=== PATIENT | female | born 2000 | race Caucasian/White ===

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

== ENCOUNTER 2019-01-22 23:08 | Emergency (ER) | payer OTHER ==
[~2019-01-22] VITALS: Ht 182.9 cm; Wt 93.0 kg
[~2019-01-22 23:08] MED LIST changes: +SUCR1TAB35 PO
--- NOTE | 2019-01-22 23:28 | ED.ADGEN ---
Past History Past Medical History: Migraines, Ovarian Cyst, UTI, Other Past Surgical History: Other Smoking: Cigarettes Alcohol Use: None Drug Use: None Adult General Chief Complaint Chief Complaint ".. 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 and been working too much over time... I been hot ...sweaty.. .. sore throat.. and now head ache ... and nausea.. I am also worried I am ..." [facility] HPI Patient is a 18 year old female who presents with above hx and abdomen pain, malaise, subjective fevers, subjective chills, arthralgia, myalgia, cephalalgia. Patient does work in in home health. No recent travel. No specific ill contacts. Patient normally healthy. Patient did not get flu vaccination this season. No history of trauma. Patient is normally healthy. Patient is concerned she might be and feels that home test are not accurate. Patient is anxious. Patient does smoke. Patient denies any history immunosuppression. Patient denies any history of drug use. . Patient denies any history of colitis or renal stones with her family members. Patient denies any history of ovarian cysts. Review of Systems Review of Systems Constitutional: Subjective complaints of fever or chills [] Eyes: Denies change in visual acuity, redness, or eye pain [] HENT: History of nasal congestion and sore throat [] Respiratory: Denies cough or shortness of breath [] Cardiovascular: No additional information not addressed in [facility] [] GI: History of abdominal discomfort, nausea, . Denies vomiting, bloody stools or diarrhea [] : Denies dysuria or hematuria [] Musculoskeletal: Patient]complaints of generalized myalgia and arthralgia. Fatigue Integument: Denies rash or skin lesions [] Neurologic: Complaints of cephalgia. Denies, focal weakness or sensory changes [ ] Endocrine: Denies polyuria or polydipsia [] All other systems were reviewed and found to be within normal limits, except as documented in this note. Family History Family History Noncontributory Current Medications Current Medications Current Medications Medications (Trade) Dose Ordered Sig/Behzad Start Time Stop Time Status Last Admin Dose Admin Acetaminophen (Tylenol) 1,000 mg 1X ONCE 01/23/19 00:45 01/23/19 00:46 DC 3/12/19 01:21 1,000 MG Lactated Ringer's 1,000 ml @ 1,000 mls/hr Q1H 01/23/19 00:45 01/23/19 01:44 DC 01/23/19 01:45 1,000 MLS/HR Ondansetron HCl (Zofran Odt) 8 mg 1X ONCE 01/23/19 00:45 01/23/19 00:46 DC 01/23/19 01:20 8 MG Allergies Allergies Allergies Coded Allergies Type Severity Reaction Last Updated Verified Sulfa (Sulfonamide Antibiotics) Allergy Intermediate 12/28/17 Yes sulfamethoxazole Allergy Intermediate 12/28/17 Yes trimethoprim Allergy Intermediate 12/28/17 Yes hydrocodone Allergy Unknown 01/26/17 Yes Physical Exam Physical Exam Constitutional: Well developed, well nourished, mild to moderate distress, non- toxic appearance. [] HENT: Normocephalic, atraumatic, bilateral external ears normal, oropharynx moist, postnasal drainage and mild erythema, no oral exudates, nose swollen turbinates and rhinorrhea that is clear Eyes: PERRLA, EOMI, conjunctiva normal, no discharge. [] Neck: Normal range of motion, no tenderness, supple, no stridor. [] Cardiovascular:Heart rate regular rhythm, no murmur [] Lungs & Thorax: Bilateral breath sounds with apex. A few scattered wheezes auscultation [] Abdomen: Bowel sounds normal, soft, mild generalized tenderness, no masses, no pulsatile masses. Tympanic and mild gaseous distention. No true rebound. Declines rectal vaginal exam this time Skin: Warm, dry, no erythema, no rash. [] Back: No tenderness, no CVA tenderness. [] Extremities: No tenderness, no cyanosis, no clubbing, ROM intact, no edema. [] No psoas or heeltap Neurologic: Alert and oriented X 3, normal motor function, normal sensory function, no focal deficits noted. []DTRs +2 patella and brachial. No drift. Ambulatory without problems. Psychologic: Affect anxious, judgement normal, mood normal. [] Current Patient Data Vital Signs Vital Signs Date Time Temp Pulse Resp B/P (MAP) Pulse Ox O2 Delivery O2 Flow Rate FiO2 01/23/19 04:20 72 16 129/79 (96) 97 Room Air 01/22/19 23:15 98.0 Lab Results Laboratory Tests Test 01/22/19 23:31 01/22/19 23:40 01/23/19 01:30 01/23/19 01:35 Urine Collection Type Unknown Urine Color Yellow Urine Clarity Clear Urine pH 5.5 Urine Specific [place] 1.015 Urine Protein Neg (NEG-TRACE) Urine Glucose (UA) Neg mg/dL (NEG) Urine Ketones (Stick) Neg mg/dL (NEG) Urine Blood Trace (NEG) Urine Nitrite Neg (NEG) Urine Bilirubin Neg (NEG) Urine Urobilinogen Dipstick 0.2 mg/dL (0.2 mg/dL) Urine Leukocyte Esterase Trace (NEG) Urine RBC 0 /HPF (0-2) Urine WBC Occ /HPF (0-4) Urine Squamous Epithelial Cells Few /LPF Urine Bacteria 0 /HPF (0-FEW) Urine Opiates Screen Neg (NEG) Urine Methadone Screen Neg (NEG) Urine Barbiturates Neg (NEG) Urine Phencyclidine Screen Neg (NEG) Urine Amphetamine/Methamphetamine Neg (NEG) Urine Benzodiazepines Screen Neg (NEG) Urine Cocaine Screen Neg (NEG) Urine Cannabinoids Screen Neg (NEG) Urine Ethyl Alcohol Neg (NEG) POC Urine HCG, Qualitative hcg negative (Negative) White Blood Count 3.6 x10^3/uL (4.0-11.0) L Red Blood Count 4.54 x10^6/uL (3.50-5.40) Hemoglobin 13.8 g/dL (12.0-15.5) Hematocrit 40.7 % (36.0-47.0) Mean Corpuscular Volume 90 fL (79-100) Mean Corpuscular Hemoglobin 30 pg (25-35) Mean Corpuscular Hemoglobin Concent 34 g/dL (31-37) Red Cell Distribution Width 12.7 % (11.5-14.5) Platelet Count 217 x10^3/uL (140-400) Neutrophils (%) (Auto) 51 % (31-73) Lymphocytes (%) (Auto) 39 % (24-48) Monocytes (%) (Auto) 8 % (0-9) Eosinophils (%) (Auto) 1 % (0-3) Basophils (%) (Auto) 1 % (0-3) Neutrophils # (Auto) 1.8 x10^3uL (1.8-7.7) Lymphocytes # (Auto) 1.4 x10^3/uL (1.0-4.8) Monocytes # (Auto) 0.3 x10^3/uL (0.0-1.1) Eosinophils # (Auto) 0.0 x10^3/uL (0.0-0.7) Basophils # (Auto) 0.0 x10^3/uL (0.0-0.2) Erythrocyte Sedimentation Rate 6 (0-25) Maternal Serum HCG Beta Subunit 1 mIU/mL (0-6) Sodium Level 139 mmol/L (136-145) Potassium Level 3.7 mmol/L (3.5-5.1) Chloride Level 104 mmol/L (98-107) Carbon Dioxide Level 28 mmol/L (21-32) Anion Gap 7 (6-14) Blood Urea Nitrogen 11 mg/dL (7-20) Creatinine 0.8 mg/dL (0.6-1.0) Estimated GFR (Cockcroft-Gault) 92.4 Glucose Level 91 mg/dL (70-99) Calcium Level 8.6 mg/dL (8.5-10.1) Magnesium Level 1.8 mg/dL (1.8-2.4) Total Bilirubin 0.3 mg/dL (0.2-1.0) Direct Bilirubin 0.1 mg/dL (0.0-0.2) Aspartate Amino Transferase (AST) 41 U/L (15-37) H Alanine Aminotransferase (ALT) 64 U/L (14-59) H Alkaline Phosphatase 61 U/L (46-116) Total Protein 6.7 g/dL (6.4-8.2) Albumin 3.3 g/dL (3.4-5.0) L Lipase 74 U/L (73-393) Thyroid Stimulating Hormone (TSH) 2.696 uIU/mL (0.358-3.740) Influenza Type A (Rapid) Negative (NEGATIVE) Influenza Type B (Rapid) Negative (NEGATIVE) Group A Streptococcus Rapid Negative (NEGATIVE) EKG EKG [] Radiology/Procedures Radiology/Procedures [] Course & Med Decision Making Course & Med Decision Making Pertinent Labs and Imaging studies reviewed. (See chart for details) Pt reports marked improvement of symptoms at time of discharge. Decline spinal tap or further work up at this time. Pt. requesting discharge. Patient push fluids. Push vitamin C drinks. Get adequate rest. Take Tylenol and ibuprofen for discomfort. Follow-up primary care. Follow-up pending labs. Have reexam if any persistent symptoms or exacerbation of symptoms. Patient encouraged to stop smoking. Pt . to followup urine cultures or repeat UA on follow up. [] Final Impression Final Impression 1. Abdomen Pain[] 2. Nausea 3. Headache 4. Mild elevation in AST and ALT 41/64 5. Viral syndrome Dragon Disclaimer Dragon Disclaimer This electronic medical record was generated, in whole or in part, using a voice recognition dictation system. Dragon Disclaimer This chart was dictated in whole or in part using Voice Recognition software in a busy, high-work load, and often noisy Emergency Department environment. It may contain unintended and wholly unrecognized errors or omissions. Dragon Disclaimer This chart was dictated in whole or in part using Voice Recognition software in a busy, high-work load, and often noisy Emergency Department environment. It may contain unintended and wholly unrecognized errors or omissions. Dragon Disclaimer This chart was dictated in whole or in part using Voice Recognition software in a busy, high-work load, and often noisy Emergency Department environment. It may contain unintended and wholly unrecognized errors or omissions. Discharge Summary Visit Information Final Diagnosis Problems Medical Problems: (1) Viral syndrome Status: Acute Brief Hospital Course Allergies Allergies Coded Allergies Type Severity Reaction Last Updated Verified Sulfa (Sulfonamide Antibiotics) Allergy Intermediate 12/28/17 Yes sulfamethoxazole Allergy Intermediate 12/28/17 Yes trimethoprim Allergy Intermediate 12/28/17 Yes hydrocodone Allergy Unknown 01/26/17 Yes Vital Signs Vital Signs Date Time Temp Pulse Resp B/P (MAP) Pulse Ox O2 Delivery O2 Flow Rate FiO2 01/23/19 04:20 72 16 129/79 (96) 97 Room Air 01/22/19 23:15 98.0 Lab Results Laboratory Tests Test 01/22/19 23:31 01/22/19 23:40 01/23/19 01:30 01/23/19 01:35 Urine Collection Type Unknown Urine Color Yellow Urine Clarity Clear Urine pH 5.5 Urine Specific [place] 1.015 Urine Protein Neg (NEG-TRACE) Urine Glucose (UA) Neg mg/dL (NEG) Urine Ketones (Stick) Neg mg/dL (NEG) Urine Blood Trace (NEG) Urine Nitrite Neg (NEG) Urine Bilirubin Neg (NEG) Urine Urobilinogen Dipstick 0.2 mg/dL (0.2 mg/dL) Urine Leukocyte Esterase Trace (NEG) Urine RBC 0 /HPF (0-2) Urine WBC Occ /HPF (0-4) Urine Squamous Epithelial Cells Few /LPF Urine Bacteria 0 /HPF (0-FEW) Urine Opiates Screen Neg (NEG) Urine Methadone Screen Neg (NEG) Urine Barbiturates Neg (NEG) Urine Phencyclidine Screen Neg (NEG) Urine Amphetamine/Methamphetamine Neg (NEG) Urine Benzodiazepines Screen Neg (NEG) Urine Cocaine Screen Neg (NEG) Urine Cannabinoids Screen Neg (NEG) Urine Ethyl Alcohol Neg (NEG) Bedside Urine HCG, Qualitative hcg negative (Negative) White Blood Count 3.6 x10^3/uL (4.0-11.0) Red Blood Count 4.54 x10^6/uL (3.50-5.40) Hemoglobin 13.8 g/dL (12.0-15.5) Hematocrit 40.7 % (36.0-47.0) Mean Corpuscular Volume 90 fL (79-100) Mean Corpuscular Hemoglobin 30 pg (25-35) Mean Corpuscular Hemoglobin Concent 34 g/dL (31-37) Red Cell Distribution Width 12.7 % (11.5-14.5) Platelet Count 217 x10^3/uL (140-400) Neutrophils (%) (Auto) 51 % (31-73) Lymphocytes (%) (Auto) 39 % (24-48) Monocytes (%) (Auto) 8 % (0-9) Eosinophils (%) (Auto) 1 % (0-3) Basophils (%) (Auto) 1 % (0-3) Neutrophils # (Auto) 1.8 x10^3uL (1.8-7.7) Lymphocytes # (Auto) 1.4 x10^3/uL (1.0-4.8) Monocytes # (Auto) 0.3 x10^3/uL (0.0-1.1) Eosinophils # (Auto) 0.0 x10^3/uL (0.0-0.7) Basophils # (Auto) 0.0 x10^3/uL (0.0-0.2) Erythrocyte Sedimentation Rate 6 (0-25) Maternal Serum HCG Beta Subunit 1 mIU/mL (0-6) Sodium Level 139 mmol/L (136-145) Potassium Level 3.7 mmol/L (3.5-5.1) Chloride Level 104 mmol/L (98-107) Carbon Dioxide Level 28 mmol/L (21-32) Anion Gap 7 (6-14) Blood Urea Nitrogen 11 mg/dL (7-20) Creatinine 0.8 mg/dL (0.6-1.0) Estimated GFR (Cockcroft-Gault) 92.4 Glucose Level 91 mg/dL (70-99) Calcium Level 8.6 mg/dL (8.5-10.1) Magnesium Level 1.8 mg/dL (1.8-2.4) Total Bilirubin 0.3 mg/dL (0.2-1.0) Direct Bilirubin 0.1 mg/dL (0.0-0.2) Aspartate Amino Transf (AST/SGOT) 41 U/L (15-37) Alanine Aminotransferase (ALT/SGPT) 64 U/L (14-59) Alkaline Phosphatase 61 U/L (46-116) Total Protein 6.7 g/dL (6.4-8.2) Albumin 3.3 g/dL (3.4-5.0) Lipase 74 U/L (73-393) Thyroid Stimulating Hormone (TSH) 2.696 uIU/mL (0.358-3.740) Influenza Type A (Rapid) Negative (NEGATIVE) Influenza Type B (Rapid) Negative (NEGATIVE) Group A Streptococcus Rapid Negative (NEGATIVE) Brief Hospital Course Ms. Smith is a 18 old female who presented with viral syndrome. Discharge Information Condition at Discharge: Improved, Stable Disposition/Orders: D/C to Home Dischare Medications Current Medications Lactated Ringer's 1,000 ml @ 1,000 mls/hr Q1H IV Last administered on at 01:45; Admin Dose 1,000 MLS/HR; Start 01/23/19 at 00:45; Stop 01/23/19 at 01:44; Status DC Ondansetron HCl (Zofran Odt) 8 mg 1X ONCE PO Last administered on 01/23/19at 01 :20; Admin Dose 8 MG; Start 01/23/19 at 00:45; Stop 01/23/19 at 00:46; Status DC Acetaminophen (Tylenol) 1,000 mg 1X ONCE PO Last administered on 01/23/19at 01: 21; Admin Dose 1,000 MG; Start 01/23/19 at 00:45; Stop 01/23/19 at 00:46; Status DC Active Scripts Active Zofran (Ondansetron Hcl) 8 Mg Tablet 8 Mg PO QIDPRN PRN Carafate (Sucralfate) 1 Gm Tablet 1 Tab PO QID 14 Days Take prior to meals Prednisone 20 Mg Tablet 1 Tab PO BID Zofran Odt (Ondansetron) 4 Mg Tab.rapdis 1 Tab SL Q6HRS Doxycycline Hyclate 100 Mg Capsule 1 Cap PO BID Reported Ibuprofen 400 Mg Tablet 400 Mg PO 1X Discharge Summary Visit Information Final Diagnosis Problems Medical Problems: (1) Viral syndrome Status: Acute Brief Hospital Course Allergies Allergies Coded Allergies Type Severity Reaction Last Updated Verified Sulfa (Sulfonamide Antibiotics) Allergy Intermediate 12/28/17 Yes sulfamethoxazole Allergy Intermediate 12/28/17 Yes trimethoprim Allergy Intermediate 12/28/17 Yes hydrocodone Allergy Unknown 01/26/17 Yes Vital Signs Vital Signs Date Time Temp Pulse Resp B/P (MAP) Pulse Ox O2 Delivery O2 Flow Rate FiO2 01/23/19 04:20 72 16 129/79 (96) 97 Room Air 01/22/19 23:15 98.0 Lab Results Laboratory Tests Test 01/22/19 23:31 01/22/19 23:40 01/23/19 01:30 01/23/19 01:35 Urine Collection Type Unknown Urine Color Yellow Urine Clarity Clear Urine pH 5.5 Urine Specific [place] 1.015 Urine Protein Neg (NEG-TRACE) Urine Glucose (UA) Neg mg/dL (NEG) Urine Ketones (Stick) Neg mg/dL (NEG) Urine Blood Trace (NEG) Urine Nitrite Neg (NEG) Urine Bilirubin Neg (NEG) Urine Urobilinogen Dipstick 0.2 mg/dL (0.2 mg/dL) Urine Leukocyte Esterase Trace (NEG) Urine RBC 0 /HPF (0-2) Urine WBC Occ /HPF (0-4) Urine Squamous Epithelial Cells Few /LPF Urine Bacteria 0 /HPF (0-FEW) Urine Opiates Screen Neg (NEG) Urine Methadone Screen Neg (NEG) Urine Barbiturates Neg (NEG) Urine Phencyclidine Screen Neg (NEG) Urine Amphetamine/Methamphetamine Neg (NEG) Urine Benzodiazepines Screen Neg (NEG) Urine Cocaine Screen Neg (NEG) Urine Cannabinoids Screen Neg (NEG) Urine Ethyl Alcohol Neg (NEG) Bedside Urine HCG, Qualitative hcg negative (Negative) White Blood Count 3.6 x10^3/uL (4.0-11.0) Red Blood Count 4.54 x10^6/uL (3.50-5.40) Hemoglobin 13.8 g/dL (12.0-15.5) Hematocrit 40.7 % (36.0-47.0) Mean Corpuscular Volume 90 fL (79-100) Mean Corpuscular Hemoglobin 30 pg (25-35) Mean Corpuscular Hemoglobin Concent 34 g/dL (31-37) Red Cell Distribution Width 12.7 % (11.5-14.5) Platelet Count 217 x10^3/uL (140-400) Neutrophils (%) (Auto) 51 % (31-73) Lymphocytes (%) (Auto) 39 % (24-48) Monocytes (%) (Auto) 8 % (0-9) Eosinophils (%) (Auto) 1 % (0-3) Basophils (%) (Auto) 1 % (0-3) Neutrophils # (Auto) 1.8 x10^3uL (1.8-7.7) Lymphocytes # (Auto) 1.4 x10^3/uL (1.0-4.8) Monocytes # (Auto) 0.3 x10^3/uL (0.0-1.1) Eosinophils # (Auto) 0.0 x10^3/uL (0.0-0.7) Basophils # (Auto) 0.0 x10^3/uL (0.0-0.2) Erythrocyte Sedimentation Rate 6 (0-25) Maternal Serum HCG Beta Subunit 1 mIU/mL (0-6) Sodium Level 139 mmol/L (136-145) Potassium Level 3.7 mmol/L (3.5-5.1) Chloride Level 104 mmol/L (98-107) Carbon Dioxide Level 28 mmol/L (21-32) Anion Gap 7 (6-14) Blood Urea Nitrogen 11 mg/dL (7-20) Creatinine 0.8 mg/dL (0.6-1.0) Estimated GFR (Cockcroft-Gault) 92.4 Glucose Level 91 mg/dL (70-99) Calcium Level 8.6 mg/dL (8.5-10.1) Magnesium Level 1.8 mg/dL (1.8-2.4) Total Bilirubin 0.3 mg/dL (0.2-1.0) Direct Bilirubin 0.1 mg/dL (0.0-0.2) Aspartate Amino Transf (AST/SGOT) 41 U/L (15-37) Alanine Aminotransferase (ALT/SGPT) 64 U/L (14-59) Alkaline Phosphatase 61 U/L (46-116) Total Protein 6.7 g/dL (6.4-8.2) Albumin 3.3 g/dL (3.4-5.0) Lipase 74 U/L (73-393) Thyroid Stimulating Hormone (TSH) 2.696 uIU/mL (0.358-3.740) Influenza Type A (Rapid) Negative (NEGATIVE) Influenza Type B (Rapid) Negative (NEGATIVE) Group A Streptococcus Rapid Negative (NEGATIVE) Brief Hospital Course Ms. Smith is a 18 old [sex] who presented with [ ] Discharge Information Dischare Medications Current Medications Lactated Ringer's 1,000 ml @ 1,000 mls/hr Q1H IV Last administered on at 01:45; Admin Dose 1,000 MLS/HR; Start 01/23/19 at 00:45; Stop 01/23/19 at 01:44; Status DC Ondansetron HCl (Zofran Odt) 8 mg 1X ONCE PO Last administered on 01/23/19at 01 :20; Admin Dose 8 MG; Start 01/23/19 at 00:45; Stop 01/23/19 at 00:46; Status DC Acetaminophen (Tylenol) 1,000 mg 1X ONCE PO Last administered on 01/23/19at 01: 21; Admin Dose 1,000 MG; Start 01/23/19 at 00:45; Stop 01/23/19 at 00:46; Status DC Active Scripts Active Zofran (Ondansetron Hcl) 8 Mg Tablet 8 Mg PO QIDPRN PRN Carafate (Sucralfate) 1 Gm Tablet 1 Tab PO QID 14 Days Take prior to meals Prednisone 20 Mg Tablet 1 Tab PO BID Zofran Odt (Ondansetron) 4 Mg Tab.rapdis 1 Tab SL Q6HRS Doxycycline Hyclate 100 Mg Capsule 1 Cap PO BID Reported Ibuprofen 400 Mg Tablet 400 Mg PO 1X Discharge Summary Visit Information Final Diagnosis Problems Medical Problems: (1) Viral syndrome Status: Acute Brief Hospital Course Allergies Allergies Coded Allergies Type Severity Reaction Last Updated Verified Sulfa (Sulfonamide Antibiotics) Allergy Intermediate 12/28/17 Yes sulfamethoxazole Allergy Intermediate 12/28/17 Yes trimethoprim Allergy Intermediate 12/28/17 Yes hydrocodone Allergy Unknown 01/26/17 Yes Vital Signs Vital Signs Date Time Temp Pulse Resp B/P (MAP) Pulse Ox O2 Delivery O2 Flow Rate FiO2 01/23/19 04:20 72 16 129/79 (96) 97 Room Air 01/22/19 23:15 98.0 Lab Results Laboratory Tests Test 01/22/19 23:31 01/22/19 23:40 01/23/19 01:30 01/23/19 01:35 Urine Collection Type Unknown Urine Color Yellow Urine Clarity Clear Urine pH 5.5 Urine Specific [place] 1.015 Urine Protein Neg (NEG-TRACE) Urine Glucose (UA) Neg mg/dL (NEG) Urine Ketones (Stick) Neg mg/dL (NEG) Urine Blood Trace (NEG) Urine Nitrite Neg (NEG) Urine Bilirubin Neg (NEG) Urine Urobilinogen Dipstick 0.2 mg/dL (0.2 mg/dL) Urine Leukocyte Esterase Trace (NEG) Urine RBC 0 /HPF (0-2) Urine WBC Occ /HPF (0-4) Urine Squamous Epithelial Cells Few /LPF Urine Bacteria 0 /HPF (0-FEW) Urine Opiates Screen Neg (NEG) Urine Methadone Screen Neg (NEG) Urine Barbiturates Neg (NEG) Urine Phencyclidine Screen Neg (NEG) Urine Amphetamine/Methamphetamine Neg (NEG) Urine Benzodiazepines Screen Neg (NEG) Urine Cocaine Screen Neg (NEG) Urine Cannabinoids Screen Neg (NEG) Urine Ethyl Alcohol Neg (NEG) Bedside Urine HCG, Qualitative hcg negative (Negative) White Blood Count 3.6 x10^3/uL (4.0-11.0) Red Blood Count 4.54 x10^6/uL (3.50-5.40) Hemoglobin 13.8 g/dL (12.0-15.5) Hematocrit 40.7 % (36.0-47.0) Mean Corpuscular Volume 90 fL (79-100) Mean Corpuscular Hemoglobin 30 pg (25-35) Mean Corpuscular Hemoglobin Concent 34 g/dL (31-37) Red Cell Distribution Width 12.7 % (11.5-14.5) Platelet Count 217 x10^3/uL (140-400) Neutrophils (%) (Auto) 51 % (31-73) Lymphocytes (%) (Auto) 39 % (24-48) Monocytes (%) (Auto) 8 % (0-9) Eosinophils (%) (Auto) 1 % (0-3) Basophils (%) (Auto) 1 % (0-3) Neutrophils # (Auto) 1.8 x10^3uL (1.8-7.7) Lymphocytes # (Auto) 1.4 x10^3/uL (1.0-4.8) Monocytes # (Auto) 0.3 x10^3/uL (0.0-1.1) Eosinophils # (Auto) 0.0 x10^3/uL (0.0-0.7) Basophils # (Auto) 0.0 x10^3/uL (0.0-0.2) Erythrocyte Sedimentation Rate 6 (0-25) Maternal Serum HCG Beta Subunit 1 mIU/mL (0-6) Sodium Level 139 mmol/L (136-145) Potassium Level 3.7 mmol/L (3.5-5.1) Chloride Level 104 mmol/L (98-107) Carbon Dioxide Level 28 mmol/L (21-32) Anion Gap 7 (6-14) Blood Urea Nitrogen 11 mg/dL (7-20) Creatinine 0.8 mg/dL (0.6-1.0) Estimated GFR (Cockcroft-Gault) 92.4 Glucose Level 91 mg/dL (70-99) Calcium Level 8.6 mg/dL (8.5-10.1) Magnesium Level 1.8 mg/dL (1.8-2.4) Total Bilirubin 0.3 mg/dL (0.2-1.0) Direct Bilirubin 0.1 mg/dL (0.0-0.2) Aspartate Amino Transf (AST/SGOT) 41 U/L (15-37) Alanine Aminotransferase (ALT/SGPT) 64 U/L (14-59) Alkaline Phosphatase 61 U/L (46-116) Total Protein 6.7 g/dL (6.4-8.2) Albumin 3.3 g/dL (3.4-5.0) Lipase 74 U/L (73-393) Thyroid Stimulating Hormone (TSH) 2.696 uIU/mL (0.358-3.740) Influenza Type A (Rapid) Negative (NEGATIVE) Influenza Type B (Rapid) Negative (NEGATIVE) Group A Streptococcus Rapid Negative (NEGATIVE) Brief Hospital Course Ms. Smith is a 18 old [sex] who presented with [ ] Discharge Information Dischare Medications Current Medications Lactated Ringer's 1,000 ml @ 1,000 mls/hr Q1H IV Last administered on at 01:45; Admin Dose 1,000 MLS/HR; Start 01/23/19 at 00:45; Stop 01/23/19 at 01:44; Status DC Ondansetron HCl (Zofran Odt) 8 mg 1X ONCE PO Last administered on 01/23/19at 01 :20; Admin Dose 8 MG; Start 01/23/19 at 00:45; Stop 01/23/19 at 00:46; Status DC Acetaminophen (Tylenol) 1,000 mg 1X ONCE PO Last administered on 01/23/19at 01: 21; Admin Dose 1,000 MG; Start 01/23/19 at 00:45; Stop 01/23/19 at 00:46; Status DC Active Scripts Active Zofran (Ondansetron Hcl) 8 Mg Tablet 8 Mg PO QIDPRN PRN Carafate (Sucralfate) 1 Gm Tablet 1 Tab PO QID 14 Days Take prior to meals Prednisone 20 Mg Tablet 1 Tab PO BID Zofran Odt (Ondansetron) 4 Mg Tab.rapdis 1 Tab SL Q6HRS Doxycycline Hyclate 100 Mg Capsule 1 Cap PO BID Reported Ibuprofen 400 Mg Tablet 400 Mg PO 1X CHARISSA CONTRERAS MD Jan 22, 2019 23:28
[2019-01-22 23:58] LABS: AMPHETAMINE/METHAMPHETAMINE NEG (NEG); BARBITURATES NEG (NEG); BENZODIAZEPINES NEG (NEG); CANNABINOIDS NEG (NEG); COCAINE NEG (NEG); METHADONE NEG (NEG); OPIATES NEG (NEG); PHENCYCLIDINE NEG (NEG)
[2019-01-23 00:02] LABS: BILIRUBIN,URINE NEG (NEG); CLARITY,URINE CLEAR; COLOR,URINE YELLOW; GLUCOSE,URINE NEG (NEG)
[2019-01-23 00:03] LABS: BACTERIA,URINE 0 /HPF (0-FEW); NITRITE,URINE NEG (NEG); RBC,URINE 0 /HPF (0-2); SQUAMOUS EPITHELIAL CELL,UR FEW /LPF; UROBILINOGEN,URINE 0.2 mg/dL (0.2 mg/dL); WBC,URINE OCC /HPF (0-4)
[2019-01-23] MEDS ORDERED: IV RINGERS SOLUTION,LACTATED 1,000 ML IV SCH (00:45)
[2019-01-23] MEDS ORDERED: ACETAMINOPHEN 500 MG TABLET PO ONE (00:45)
[2019-01-23] MEDS ORDERED: ONDANSETRON ODT 4 MG TAB.RAPDIS PO ONE (00:45)
[2019-01-23 01:56] LABS: BASO % 1 % (0-3); EOS % 1 % (0-3); HEMATOCRIT 40.7 % (36.0-47.0); HEMOGLOBIN 13.8 g/dL (12.0-15.5); LYMPH # 1.4 x10^3/uL (1.0-4.8); LYMPH % 39 % (24-48); MEAN CORPUSCULAR HEMOGLOBIN 30 pg (25-35); MEAN CORPUSCULAR HGB CONC 34 g/dL (31-37); MEAN CORPUSCULAR VOLUME 90 fL (79-100); MONO # 0.3 x10^3/uL (0.0-1.1); MONO % 8 % (0-9); NEUT # 1.8 x10^3uL (1.8-7.7); NEUT % 51 % (31-73); PLATELET COUNT 217 x10^3/uL (140-400); RED BLOOD COUNT 4.54 x10^6/uL (3.50-5.40); RED CELL DISTRIBUTION WIDTH 12.7 % (11.5-14.5); WHITE BLOOD COUNT 3.6 x10^3/uL (4.0-11.0)
[2019-01-23 02:10] LABS: ALBUMIN 3.3 g/dL (3.4-5.0); CALCIUM 8.6 mg/dL (8.5-10.1); CREATININE 0.8 mg/dL (0.6-1.0); DIRECT BILIRUBIN 0.1 mg/dL (0.0-0.2); GFR 92.4; MAGNESIUM 1.8 mg/dL (1.8-2.4); POTASSIUM 3.7 mmol/L (3.5-5.1); TOTAL BILIRUBIN 0.3 mg/dL (0.2-1.0); TOTAL PROTEIN 6.7 g/dL (6.4-8.2)
[2019-01-23 02:23] LABS: INFLUENZA A PATIENT NEGATIVE (NEGATIVE); INFLUENZA B PATIENT NEGATIVE (NEGATIVE)
[2019-01-23 04:04] LABS: SEDIMENTATION RATE 6 (0-25)
[2019-01-23] MEDS ORDERED: ONDA8TAB9 PO (04:16)
[2019-01-23 04:20] VITALS: BP 129/79
== END 2019-01-23 04:35 | disposition home or self-care (01) ==
LOC: ER 23:08
DX: B34.9 Viral infection, unspecified (principal); R51 Headache; R74.0 Nonspecific elevation of levels of transaminase and lactic acid dehydrogenase [LDH]; G43.909 Migraine, unspecified, not intractable, without status migrainosus; F17.210 Nicotine dependence, cigarettes, uncomplicated; Z88.2 Allergy status to sulfonamides; Z88.1 Allergy status to other antibiotic agents; Z88.5 Allergy status to narcotic agent
CPT/HCPCS: 36415; 80048; 80076; 80307; 81001; 81025; 83690; 83735; 84443; 84702; 85025; 85651; 87070; 87086; 87804; 87880; 99283; J7120; Q0162

== ENCOUNTER 2019-11-17 12:46 | Emergency (ER) | payer OTHER ==
[~2019-11-17 12:46] MED LIST changes: +ONDA8TAB9 PO
[2019-11-17 12:59] VITALS: BP 156/96
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
[2019-11-17] MEDS ORDERED: DICL50TA4 PO (13:21)
--- NOTE | 2019-11-17 13:25 | RAD ---
EXAM: LEFT WRIST 3 VIEWS. HISTORY: Left wrist pain after twisting injury. COMPARISON: None. FINDINGS: No fractures are identified. Alignment is maintained. Joint spaces are maintained. IMPRESSION: 1. No fracture. Electronically signed by: Ruthy Hoffman MD (11/17/2019 1:23 PM) [facility]
== END 2019-11-17 13:48 | disposition home or self-care (01) ==
LOC: ER 12:46
DX: S63.502A Unspecified sprain of left wrist, initial encounter (principal); G43.909 Migraine, unspecified, not intractable, without status migrainosus; Z87.440 Personal history of urinary (tract) infections; F17.210 Nicotine dependence, cigarettes, uncomplicated; Z88.2 Allergy status to sulfonamides; Z88.5 Allergy status to narcotic agent; Z88.8 Allergy status to other drugs, medicaments and biological substances; Y04.0XXA Assault by unarmed brawl or fight, initial encounter; Y93.89 Activity, other specified; Y92.89 Other specified places as the place of occurrence of the external cause; Y99.8 Other external cause status
CPT/HCPCS: 73110; 99284

== ENCOUNTER 2019-12-08 19:38 | Emergency (ER) | payer OTHER ==
[~2019-12-08] VITALS: Ht 182.9 cm; Wt 92.2 kg
[~2019-12-08 19:38] MED LIST changes: +DICL50TA4 PO
[2019-12-08] MEDS ORDERED: KETOROLAC 30 MG/ML VIAL. IM ONE (20:00)
[2019-12-08] MEDS ORDERED: oxyCODONE/APAP 5/325 1 TAB TABLET PO ONE (20:00)
[2019-12-08] MEDS ORDERED: silver sulfADIAZINE 1% CREAM 50GM JAR. TP ONE (20:00)
[2019-12-08] MEDS ORDERED: OXYC1TAB15 PO (20:05)
[2019-12-08] MEDS ORDERED: SILV20CR14 TP (20:05)
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
[2019-12-08 20:50] VITALS: BP 105/83
== END 2019-12-08 20:56 | disposition home or self-care (01) ==
LOC: ER 19:38
DX: T24.212A Burn of second degree of left thigh, initial encounter (principal); T31.0 Burns involving less than 10% of body surface; F41.9 Anxiety disorder, unspecified; X10.0XXA Contact with hot drinks, initial encounter; Y93.89 Activity, other specified; Y92.89 Other specified places as the place of occurrence of the external cause; Y99.8 Other external cause status
CPT/HCPCS: 16020; 96372; 99284; J1885

== ENCOUNTER 2021-08-08 04:13 | Emergency (ER) | payer SELFPAY ==
[~2021-08-08] VITALS: Ht 182.9 cm; Wt 92.2 kg
[~2021-08-08 04:13] MED LIST changes: -DOXY100C2 PO; +DOXY100C3 PO; +OXYC1TAB15 PO; +SILV20CR14 TP
[2021-08-08] MEDS ORDERED: METOCLOPRAMIDE HCL 10 MG/2 ML VIAL. ONE (04:50)
[2021-08-08] MEDS ORDERED: KETOROLAC 15 MG/ML VIAL. ONE (04:51)
[2021-08-08] MEDS ORDERED: FAMOTIDINE 20 MG/2 ML VIAL ONE (04:51)
[2021-08-08] MEDS ORDERED: METOCLOPRAMIDE HCL 10 MG/2 ML VIAL. IVP ONE (05:00)
[2021-08-08] MEDS ORDERED: IV NORMAL SALINE 1,000ML 1,000 ML IV ONE (05:00)
[2021-08-08] MEDS ORDERED: FAMOTIDINE 20 MG/2 ML VIAL IVP ONE (05:00)
[2021-08-08] MEDS ORDERED: KETOROLAC 15 MG/ML VIAL. IVP ONE (05:00)
[2021-08-08 05:05] LABS: BASO % 0 % (0-3); EOS # 0.1 x10^3/uL (0.0-0.7); EOS % 1 % (0-3); HEMATOCRIT 39.1 % (36.0-47.0); HEMOGLOBIN 13.3 g/dL (12.0-15.5); LYMPH # 5.4 x10^3/uL (1.0-4.8); LYMPH % 37 % (24-48); MEAN CORPUSCULAR HEMOGLOBIN 33 pg (25-35); MEAN CORPUSCULAR HGB CONC 34 g/dL (31-37); MEAN CORPUSCULAR VOLUME 97 fL (79-100); MONO # 0.8 x10^3/uL (0.0-1.1); MONO % 6 % (0-9); NEUT # 8.4 x10^3uL (1.8-7.7); NEUT % 57 % (31-73); PLATELET COUNT 292 x10^3/uL (140-400); RED BLOOD COUNT 4.05 x10^6/uL (3.50-5.40); RED CELL DISTRIBUTION WIDTH 13.3 % (11.5-14.5); WHITE BLOOD COUNT 14.8 x10^3/uL (4.0-11.0)
[2021-08-08 05:12] LABS: CALCIUM 8.3 mg/dL (8.5-10.1); CREATININE 0.7 mg/dL (0.6-1.0); GFR 105.6; POTASSIUM 3.3 mmol/L (3.5-5.1)
[2021-08-08 05:16] LABS: U PREG PATIENT NEGATIVE (NEG)
[2021-08-08 05:18] LABS: ALBUMIN 3.4 g/dL (3.4-5.0); MAGNESIUM 1.9 mg/dL (1.8-2.4); TOTAL BILIRUBIN 0.4 mg/dL (0.2-1.0); TOTAL PROTEIN 6.8 g/dL (6.4-8.2)
[2021-08-08 05:25] LABS: BILIRUBIN,URINE LARGE (NEG); CLARITY,URINE CLOUDY; COLOR,URINE RED; GLUCOSE,URINE NEG (NEG); NITRITE,URINE POS (NEG); RBC,URINE TNTC /HPF (0-2)
[2021-08-08 05:26] LABS: BACTERIA,URINE FEW /HPF (0-FEW); SQUAMOUS EPITHELIAL CELL,UR MOD /LPF
[2021-08-08] MEDS ORDERED: IV NORMAL SALINE 50ML 50 ML ONE (05:33)
[2021-08-08] MEDS ORDERED: cefTRIAXone SODIUM 1 GM VIAL ONE (05:34)
--- NOTE | 2021-08-08 06:12 | PHYS DOC ---
Past History Past Medical History: Anxiety (JASVIR HUNTLEY DO) Past Surgical History: Other Additional Past Surgical Histo: CATARACT (JASVIR HUNTLEY DO) Smoking: Cigarettes Alcohol Use: None Drug Use: None (JASVIR HUNTLEY DO) General Adult EDM: Chief Complaint: ABDOMINAL PAIN HPI: HPI: 20-year-old female presents with report of lower abdominal pain that started approximately 2 to 3 days ago. Patient reports radiation to her flank. Reports associated nausea and vomiting that started today. Patient also reports she recently started her menstrual cycle. Reports pain similar to prior episodes of "burst ovarian cyst ". Denies any fever or chills. Denies trauma. Denies concern for STDs. (AJSVIR HUNTLEY DO) Review of Systems: Review of Systems: Constitutional: Denies fever or chills Eyes: Denies redness or eye pain HENT: Denies nasal congestion or sore throat Respiratory: Denies cough or shortness of breath Cardiovascular: Denies chest pain or palpitations GI: Reports abdominal pain, nausea, and vomiting : Denies dysuria or hematuria Musculoskeletal: Reports flank pain; denies extremity pain Integument: Denies rash or skin lesions Neurologic: Denies headache, focal weakness or sensory changes Complete systems were reviewed and found to be within normal limits, except as documented in this note. (JASVIR HUNTLEY DO) Current Medications: Current Meds: Current Medications Medications (Trade) Dose Ordered Sig/Behzad Start Time Stop Time Status Last Admin Dose Admin Ceftriaxone Sodium 1 gm/ Sodium Chloride 50 ml @ 100 mls/hr 1X ONCE 08/08/21 05:30 08/08/21 05:59 DC 08/08/21 05:37 100 MLS/HR Ceftriaxone Sodium (Rocephin) 1 gm STK-MED ONCE 08/08/21 05:34 08/08/21 05:34 DC Famotidine (Pepcid Vial) 20 mg STK-MED ONCE 08/08/21 04:51 08/08/21 04:51 DC Ketorolac Tromethamine (Toradol 15mg Vial) 15 mg STK-MED ONCE 08/08/21 04:51 08/08/21 04:51 DC Metoclopramide HCl (Reglan Vial) 10 mg STK-MED ONCE 08/08/21 04:50 08/08/21 04:51 DC Sodium Chloride 50 ml @ As Directed STK-MED ONCE 08/08/21 05:33 08/08/21 05:34 DC (JASVIR HUNTLEY DO) Allergies: Allergies: Allergies Coded Allergies Type Severity Reaction Last Updated Verified Sulfa (Sulfonamide Antibiotics) Allergy Intermediate 12/28/17 Yes sulfamethoxazole Allergy Intermediate 12/28/17 Yes trimethoprim Allergy Intermediate 12/28/17 Yes hydrocodone Allergy Unknown 01/26/17 Yes (JASVIR HUNTLEY DO) Physical Exam: PE: Constitutional: Well developed, well nourished, uncomfortable, non-toxic appearance HENT: Normocephalic, atraumatic Eyes: Conjunctiva normal, no discharge Neck: Normal range of motion, supple Lungs & Thorax: No respiratory distress, equal chest rise and fall Abdomen: Soft, suprapubic tenderness, Skin: Warm, dry, no erythema, no rash Back: No tenderness, left CVA tenderness Extremities: No tenderness, ROM intact, no edema Neurologic: Alert and oriented X 3, no focal deficits noted Psychologic: Affect normal, judgment normal (JASVIR HUNTLEY DO) Current Patient Data: Labs: Laboratory Tests Test 08/08/21 04:20 08/08/21 04:30 Urine Collection Type Unknown Urine Color Red Urine Clarity Cloudy Urine pH 5.5 Urine Specific Jachin 1.020 Urine Protein >100 mg/dl (NEG-TRACE) Urine Glucose (UA) Neg mg/dL (NEG) Urine Ketones (Stick) 15 mg/dL (NEG) Urine Blood Large (NEG) Urine Nitrite Pos (NEG) Urine Bilirubin Large (NEG) Urine Urobilinogen Dipstick 4.0 mg/dL (0.2 mg/dL) Urine Leukocyte Esterase Large (NEG) Urine RBC Tntc /HPF (0-2) Urine WBC 11-20 /HPF (0-4) Urine Squamous Epithelial Cells Mod /LPF Urine Bacteria Few /HPF (0-FEW) Urine Mucus Slight /LPF Urine Test Negative (NEG) White Blood Count 14.8 x10^3/uL (4.0-11.0) H Red Blood Count 4.05 x10^6/uL (3.50-5.40) Hemoglobin 13.3 g/dL (12.0-15.5) Hematocrit 39.1 % (36.0-47.0) Mean Corpuscular Volume 97 fL (79-100) Mean Corpuscular Hemoglobin 33 pg (25-35) Mean Corpuscular Hemoglobin Concent 34 g/dL (31-37) Red Cell Distribution Width 13.3 % (11.5-14.5) Platelet Count 292 x10^3/uL (140-400) Neutrophils (%) (Auto) 57 % (31-73) Lymphocytes (%) (Auto) 37 % (24-48) Monocytes (%) (Auto) 6 % (0-9) Eosinophils (%) (Auto) 1 % (0-3) Basophils (%) (Auto) 0 % (0-3) Neutrophils # (Auto) 8.4 x10^3uL (1.8-7.7) H Lymphocytes # (Auto) 5.4 x10^3/uL (1.0-4.8) H Monocytes # (Auto) 0.8 x10^3/uL (0.0-1.1) Eosinophils # (Auto) 0.1 x10^3/uL (0.0-0.7) Basophils # (Auto) 0.0 x10^3/uL (0.0-0.2) Sodium Level 140 mmol/L (136-145) Potassium Level 3.3 mmol/L (3.5-5.1) L Chloride Level 104 mmol/L (98-107) Carbon Dioxide Level 27 mmol/L (21-32) Anion Gap 9 (6-14) Blood Urea Nitrogen 5 mg/dL (7-20) L Creatinine 0.7 mg/dL (0.6-1.0) Estimated GFR (Cockcroft-Gault) 105.6 BUN/Creatinine Ratio 7 (6-20) Glucose Level 111 mg/dL (70-99) H Calcium Level 8.3 mg/dL (8.5-10.1) L Magnesium Level 1.9 mg/dL (1.8-2.4) Total Bilirubin 0.4 mg/dL (0.2-1.0) Aspartate Amino Transferase (AST) 7 U/L (15-37) L Alanine Aminotransferase (ALT) 12 U/L (14-59) L Alkaline Phosphatase 57 U/L (46-116) Total Protein 6.8 g/dL (6.4-8.2) Albumin 3.4 g/dL (3.4-5.0) Albumin/Globulin Ratio 1.0 (1.0-1.7) Lipase 44 U/L (73-393) L Vital Signs: Vital Signs Date Time Temp Pulse Resp B/P (MAP) Pulse Ox O2 Delivery O2 Flow Rate FiO2 08/08/21 05:03 72 18 110/55 (73) 98 Room Air 08/08/21 04:28 97.9 (JASVIR HUNTLEY DO) EKG: EKG: [] (JASVIR HUNTLEY DO) Radiology/Procedures: Radiology/Procedures: [] (JASVIR HUNTLEY DO) Impressions: EXAM: CT ABDOMEN/PELVIS WITHOUT CONTRAST. HISTORY: Flank pain. TECHNIQUE: Computed tomography of the abdomen and pelvis was performed without intravenous contrast. One or more of the following individualized dose reduction techniques were utilized for this examination: 1. Automated exposure control. 2. Adjustment of the mA and/or kV according to patient size. 3. Use of iterative reconstruction technique. COMPARISON: 12/28/2017. FINDINGS: Lung windows through the visualized portions of the bases reveal mild groundglass opacities dependently, consistent with atelectasis or mild pneumonitis. Bone windows reveal no suspicious lesions. There are no renal or ureteral calculi. There is urothelial thickening along the left upper tract. There is no hydronephrosis. There are no suspicious renal lesions without contrast. The bladder is decompressed but demonstrates mild wall thickening. The appendix is not inflamed. There is no small bowel obstruction. The liver, gallbladder, pancreas, adrenal glands and spleen are unremarkable without contrast. There are no pathologically enlarged lymph nodes. IMPRESSION: 1. Urothelial thickening along the left upper tract suggest ascending infection. Correlate with urinalysis. Electronically signed by: Ruthy Hoffman MD (08/08/2021 6:44 AM) [facility] DICTATED AND SIGNED BY: JORI HOFFMAN MD DATE: 08/08/21 0631 CC: KIRA RIDLEY DO; MARTHA MCCONNELL DO; JASVIR HUNTLEY DO ~MTH0 0 (KIRA RIDLEY DO) Heart Score: C/O Chest Pain: N/A (JASVIR HUNTLEY DO) Course & Med Decision Making: Course & Med Decision Making Pertinent Labs and Imaging studies reviewed. (See chart for details) Patient presents with report of lower abdominal pain with radiation to flank. Reports associated nausea and vomiting. Pain/nausea addressed. IV fluid hydration given. Labs obtained and posted to chart. UA with signs of infection versus contamination. Given symptoms empiric antibiotic initiated with Rocephin. CT abdomen/pelvis pending at this time. 0600-sign out given to Dr. Ridley for further evaluation and final disposition. Discussed current findings and plan with patient and family, who acknowledge understanding and agreement. (JASVIR HUNTLEY DO) Course & Med Decision Making The patient CT scan does show some ascending inflammation of the ureters. This is concerning for early pyelonephritis. Patient has been treated with 1 g of Rocephin in the ER. I will discharge her with levofloxacin 750 mg daily for the next 5 days. She is stable for discharge at this time. (KIRA RIDLEY DO) Dragon Disclaimer: Dragon Disclaimer: This electronic medical record was generated, in whole or in part, using a voice recognition dictation system. (JASVIR HUNTLEY DO) Departure Departure: Impression: Primary Impression: Abdominal pain Qualified Codes: R10.30 - Lower abdominal pain, unspecified Additional Impression: UTI (urinary tract infection) Qualified Codes: N10 - Acute pyelonephritis Disposition: HOME / SELF CARE / HOMELESS Condition: STABLE Referrals: MARTHA MCCONNELL DO (PCP) Patient Instructions: Urinary Tract Infection, [id number] Scripts Levofloxacin (LEVOFLOXACIN) 750 Mg Tablet 1 TAB PO DAILY for pyelonephritis, #5 TAB Prov: KIRA RIDLEY DO 08/08/21 JASVIR HUNTLEY DO Aug 08, 2021 06:11 KIRA RIDLEY DO Aug 08, 2021 06:57
--- NOTE | 2021-08-08 06:46 | RAD ---
EXAM: CT ABDOMEN/PELVIS WITHOUT CONTRAST. HISTORY: Flank pain. TECHNIQUE: Computed tomography of the abdomen and pelvis was performed without intravenous contrast. One or more of the following individualized dose reduction techniques were utilized for this examinat ion: 1. Automated exposure control. 2. Adjustment of the mA and/or kV according to patient size. 3. Use of iterative reconstruction technique. COMPARISON: 12/28/2017. FINDINGS: Lung windows through the visualized portions of the bases reveal mild groundglass opacities dependently, consistent with atelectasis or mild pneumonitis. Bone windows reveal no suspicious lesi ons. There are no renal or ureteral calculi. There is urothelial thickening along the left upper tract. Th ere is no hydronephrosis. There are no suspicious renal lesions without contrast. The bladder is deco mpressed but demonstrates mild wall thickening. The appendix is not inflamed. There is no small bowel obstruction. The liver, gallbladder, pancreas, adrenal glands and spleen are unremarkable without contrast. There are no pathologically enlarged lym ph nodes. IMPRESSION: 1. Urothelial thickening along the left upper tract suggest ascending infection. Correlate with urina lysis. Electronically signed by: Ruthy Hoffman MD (08/08/2021 6:44 AM) [facility]
[2021-08-08] MEDS ORDERED: LEVO750T5 PO (07:00)
[2021-08-08 07:04] VITALS: BP 100/45
== END 2021-08-08 07:04 | disposition home or self-care (01) ==
LOC: ER 04:13
DX: N10 Acute pyelonephritis (principal); R10.30 Lower abdominal pain, unspecified; F41.9 Anxiety disorder, unspecified; F17.210 Nicotine dependence, cigarettes, uncomplicated; Z88.2 Allergy status to sulfonamides; Z88.1 Allergy status to other antibiotic agents; Z88.5 Allergy status to narcotic agent
CPT/HCPCS: 36415; 74176; 80053; 81001; 81025; 83690; 83735; 85025; 87086; 96361; 96374; 96375; 99284; J0696; J1885; J2765; J3490; J7030; 87077; 87186